=== PATIENT | male | born 1955 | race African-American/Black ===

== ENCOUNTER 2020-03-21 06:53 | Emergency (ER) | payer MEDICARE, OTHER ==
[2020-03-21 08:25] LABS: BASOPHIL 0.6 % (0-2); HCT 47.7 % (42.0-52.0); HGB 15.4 g/dl (13.2-18.0); LYMPHOCYTE 9.7 % (15-48); MCH 28.4 pg (25.0-31.0); MCHC 32.3 g/dL (32.0-36.0); MCV 87.8 fL (78.0-100.0); MONOCYTE 13.4 % (0-12); MPV 9.7 fL (6.0-9.5); NEUTROPHIL 74.5 % (41-80); NRBC 0; PLT 221 K/uL (150-400); RBC 5.43 M/uL (4.70-6.00); RDW 14.6 % (11.5-14.0); WBC 5.1 K/uL (4.0-10.5)
[2020-03-21 08:52] LABS: INR 1.57 (0.9-1.2); PROTHROMBIN TIME 17.8 SECONDS (11.4-13.6); PTT 34.9 SECONDS (22.2-34.7)
[2020-03-21 09:00] LABS: BILIRUBIN - TOTAL 0.8 mg/dL (0.2-1.0); BUN/CREAT RATIO (CALC) 13.1 RATIO; CREATININE 1.76 mg/dL (0.67-1.17)
[2020-03-21] MEDS ORDERED: NORCO 5-325 TA1 EACH PO (11:09)
== END 2020-03-21 11:37 | disposition home or self-care (01) ==
LOC: FER 06:53
PROVIDERS: Emergency Medicine
DX: R04.0 Epistaxis (principal); I50.9 Heart failure, unspecified
CPT/HCPCS: 36415; 80053; 85025; 85610; 85730; C9046

== ENCOUNTER 2020-04-11 02:47 | Emergency (ER) | payer MEDICARE, OTHER ==
[~2020-04-11 02:47] MED LIST: NORCO 5-325 TA1 EACH PO
[2020-04-11 03:47] LABS: BASOPHIL 0.6 % (0-2); EOSINOPHIL 0.9 % (0-7); HCT 45.5 % (42.0-52.0); HGB 14.2 g/dl (13.2-18.0); LYMPHOCYTE 6.2 % (15-48); MCH 27.7 pg (25.0-31.0); MCHC 31.2 g/dL (32.0-36.0); MCV 88.9 fL (78.0-100.0); MONOCYTE 13.2 % (0-12); MPV 8.5 fL (6.0-9.5); NEUTROPHIL 78.4 % (41-80); NRBC 0; PLT 399 K/uL (150-400); RBC 5.12 M/uL (4.70-6.00); RDW 14.7 % (11.5-14.0); WBC 6.9 K/uL (4.0-10.5)
[2020-04-11] MEDS ORDERED: VIBRAMYCIN100 MG PO (03:53)
[2020-04-11 03:57] LABS: INR 2.12 (0.9-1.2); PROTHROMBIN TIME 22.6 SECONDS (11.4-13.6)
== END 2020-04-11 07:32 | disposition home or self-care (01) ==
LOC: FER 02:47
PROVIDERS: Emergency Medicine
DX: R04.0 Epistaxis (principal)
CPT/HCPCS: 36415; 85025; 85610

== ENCOUNTER 2020-05-31 02:02 | Emergency (ER) | payer MEDICARE, OTHER ==
[~2020-05-31 02:02] MED LIST changes: +VIBRAMYCIN100 MG PO
[2020-05-31 02:52] LABS: BASOPHIL 0.8 % (0-2); EOSINOPHIL 1.5 % (0-7); HCT 44.1 % (42.0-52.0); HGB 14.2 g/dl (13.2-18.0); LYMPHOCYTE 8.5 % (15-48); MCHC 32.2 g/dL (32.0-36.0); MCV 86.8 fL (78.0-100.0); MONOCYTE 16.2 % (0-12); MPV 9.1 fL (6.0-9.5); NEUTROPHIL 72.8 % (41-80); NRBC 0; PLT 247 K/uL (150-400); RBC 5.08 M/uL (4.70-6.00); RDW 15.1 % (11.5-14.0); WBC 5.3 K/uL (4.0-10.5)
[2020-05-31 02:56] LABS: INR 1.83 (0.9-1.2); PROTHROMBIN TIME 20.1 SECONDS (11.4-13.6); PTT 37.3 SECONDS (22.2-34.7)
[2020-05-31] MEDS ORDERED: AUGMENTIN 875-1 EACH PO (03:02)
== END 2020-05-31 03:17 | disposition home or self-care (01) ==
LOC: FER 02:02
PROVIDERS: Emergency Medicine Emergency Medical Services
DX: R04.0 Epistaxis (principal); I11.0 Hypertensive heart disease with heart failure; I50.9 Heart failure, unspecified; Z98.890 Other specified postprocedural states; Z88.8 Allergy status to other drugs, medicaments and biological substances; Z79.01 Long term (current) use of anticoagulants; Z79.82 Long term (current) use of aspirin; Z79.899 Other long term (current) drug therapy
CPT/HCPCS: 36415; 85025; 85610; 85730

== ENCOUNTER 2020-08-15 10:03 | Emergency (ER) | payer MEDICARE, OTHER ==
[~2020-08-15 10:03] MED LIST changes: +AUGMENTIN 875-1 EACH PO
== END 2020-08-15 11:53 | disposition home or self-care (01) ==
LOC: FER 10:03
DX: R04.0 Epistaxis (principal); I10 Essential (primary) hypertension; Z87.891 Personal history of nicotine dependence; Z88.8 Allergy status to other drugs, medicaments and biological substances
CPT/HCPCS: C9046

== ENCOUNTER 2021-03-17 14:30 | Emergency (ER) | payer MEDICARE ==
[2021-03-17 16:23] LABS: HCT 40.9 % (42.0-52.0); HGB 12.7 g/dL (13.2-18.0)
[2021-03-17 16:41] LABS: INR 1.58 (0.9-1.2); PROTHROMBIN TIME 18.1 SECONDS (11.8-13.4)
== END 2021-03-17 17:33 | disposition home or self-care (01) ==
LOC: FER 14:30
PROVIDERS: Emergency Medicine
DX: R04.0 Epistaxis (principal); Z88.8 Allergy status to other drugs, medicaments and biological substances
CPT/HCPCS: 36415; 85014; 85018; 85610; C9046

== ENCOUNTER 2021-08-04 19:11 | Emergency (ER) | payer MEDICARE | END 2021-08-04 20:45 | disposition left against medical advice (07) | LOC: FER 19:11 | DX: Z53.21 Procedure and treatment not carried out due to patient leaving prior to being seen by health care provider (principal) ==

== ENCOUNTER 2021-09-18 09:57 | Emergency (ER) | payer MEDICARE ==
[2021-09-18 13:31] LABS: INR 1.61 (0.9-1.2); PROTHROMBIN TIME 18.6 SECONDS (11.9-13.9); PTT 32.1 SECONDS (24.9-34.6)
== END 2021-09-18 14:30 | disposition home or self-care (01) ==
LOC: FER 09:57
PROVIDERS: Nurse Practitioner Family
DX: R04.0 Epistaxis (principal); I10 Essential (primary) hypertension; Z88.8 Allergy status to other drugs, medicaments and biological substances; Z87.891 Personal history of nicotine dependence
CPT/HCPCS: 36415; 85610; 85730; 99283

== ENCOUNTER 2021-11-07 10:07 | Emergency (ER) | payer MEDICARE | END 2021-11-07 11:32 | disposition home or self-care (01) | LOC: FER 10:07 | DX: R04.0 Epistaxis (principal); I11.0 Hypertensive heart disease with heart failure; I50.9 Heart failure, unspecified; Z87.891 Personal history of nicotine dependence; Z79.01 Long term (current) use of anticoagulants; Z79.899 Other long term (current) drug therapy; Z79.82 Long term (current) use of aspirin | CPT/HCPCS: C9046 ==

== ENCOUNTER 2021-11-07 12:00 | Emergency (ER) | payer MEDICARE | END 2021-11-07 14:32 | disposition home or self-care (01) | LOC: FER 12:00 | DX: R04.0 Epistaxis (principal); R00.1 Bradycardia, unspecified; I11.0 Hypertensive heart disease with heart failure; I50.9 Heart failure, unspecified; Z88.8 Allergy status to other drugs, medicaments and biological substances; Z79.01 Long term (current) use of anticoagulants; Z87.891 Personal history of nicotine dependence; Z79.899 Other long term (current) drug therapy ==